=== PATIENT | female | born 1975 | race Hispanic/Latino ===

== ENCOUNTER 2019-03-15 15:01 | Emergency (ER) | payer SELFPAY ==
[~2019-03-15] VITALS: Ht 154.9 cm; Wt 50.0 kg
[2019-03-15] MEDS ORDERED: AMOXICILLIN875 MG PO (15:55)
[2019-03-15 16:00] VITALS: BP 126/76
== END 2019-03-15 16:00 | disposition home or self-care (01) | DRG 153 ==
LOC: ED 15:01
DX: J02.9 Acute pharyngitis, unspecified (principal); F17.210 Nicotine dependence, cigarettes, uncomplicated